=== PATIENT | male | born 1950 | race Caucasian/White ===

== ENCOUNTER → 2016-06-22 | Outpatient (CLI) | payer MEDICARE, BC ==
--- NOTE | 2016-06-23 08:37 | XR ---
EXAMINATION TYPE: XR finger RT DATE OF EXAM: 06/22/2016 5:09 PM COMPARISON: NONE HISTORY: Pain MCP joint TECHNIQUE: Two views are submitted. FINDINGS: The osseous structures are intact. Narrowing of the DIP and MCP joint noted. No erosive changes. Narr owing of the first carpal metacarpal joint noted. IMPRESSION: 1. No definite acute fracture or dislocation if symptoms persist, follow-up study in 7 to 10 days wo uld be suggested. 2. Findings suggest osteoarthritis
== END | disposition home or self-care (01) ==
LOC: RADXRYALE 17:00
PROVIDERS: ATTEND Family Medicine
DX: M79.644 Pain in right finger(s) (principal)